=== PATIENT | male | born 1940 ===

== ENCOUNTER 2023-12-20 11:56 | Emergency (ER) | payer OTHER, MEDICARE ==
[~2023-12-20] VITALS: Ht 167.6 cm; Wt 80.5 kg
[2023-12-20] MEDS ORDERED: AMOXICILLIN500 MG PO (15:52)
[2023-12-20 15:55] VITALS: BP 164/95
[2023-12-20] MEDS ORDERED: AMOXICILLIN 500 MG CAP PO ONE (16:00)
== END 2023-12-20 15:55 | disposition home or self-care (01) ==
LOC: ED 11:56
DX: S02.2XXA Fracture of nasal bones, initial encounter for closed fracture (principal); S02.5XXA Fracture of tooth (traumatic), initial encounter for closed fracture; S01.112A Laceration without foreign body of left eyelid and periocular area, initial encounter; V86.55XA Driver of 3- or 4- wheeled all-terrain vehicle (ATV) injured in nontraffic accident, initial encounter; Z95.5 Presence of coronary angioplasty implant and graft
CPT/HCPCS: 70450; 70486; 99284-25